=== PATIENT | female | born 1965 | race Caucasian/White ===

== ENCOUNTER → 2022-08-10 07:27 | Outpatient (CLI) | payer MEDICARE, OTHER, SELFPAY ==
--- NOTE | ~2022-08-10 | MR_ITS ---
MRI of the lumbar spine Clinical History: Radiculopathy Technique: Axial T2-weighted images, and sagittal T1-weighted, T2-weighted, and and T2 fat-sat images were acquired. Findings: There is no fracture or subluxation of the lumbar spine. Vertebral bodies maintain normal h eight and alignment. No significant bone marrow signal abnormality seen. At L1-L2, L2-L3, L3-L4, L4-L5, there is no disc bulge or herniation. No spinal canal stenosis or neur al foraminal narrowing at these levels. There is advanced facet arthropathy at L4-L5. There is mild f acet arthropathy at L2-L3 and L3-L4. At L5-S1, there is minimal disc bulge with tiny annular fissure. There is facet arthropathy. No spina l canal stenosis or neural foraminal narrowing. Paravertebral soft tissues are unremarkable. Impression: Mild degenerative spondylosis, as detailed above. No spinal canal stenosis or neural foraminal narrow ing evident. Reviewed, dictated and finalized at location M. Impression: Mild degenerative spondylosis, as detailed above. No spinal canal stenosis or n eural foraminal narrowing evident.
== END ==
PROVIDERS: PCP Family Medicine; Visit Provider Nurse Practitioner Family
DX: M47.26 Other spondylosis with radiculopathy, lumbar region (principal)
CPT/HCPCS: 72148